=== PATIENT | female | born 1935 | race Caucasian/White ===

== ENCOUNTER 2022-10-27 05:01 | Emergency (ER) | payer MEDICARE, OTHER ==
[2022-10-27 05:14] VITALS: BP 134/73; PULSE 70
[2022-10-27] MEDS ORDERED: Ondansetron 4 MG/2 ML SDV IVPUSH ONE ×2 (05:29→09:26)
[2022-10-27] MEDS ORDERED: Sodium Chloride 0.9% 10 ML Syringe FLUSH PRN ×2 (05:29→07:51)
[2022-10-27] MEDS ORDERED: Sodium Chloride 0.9% 1,000 ML IV STA (05:29)
[2022-10-27 07:00] LABS: ESTIMATED GFR 55 mL/min (>60)
[2022-10-27] MEDS ORDERED: Iopamidol 612 MG/ML 100 ML Bottle IVPUSH ONE (07:51)
== END 2022-10-27 09:42 | disposition home or self-care (01) ==
LOC: JD.ED 05:01
DX: K52.9 Noninfective gastroenteritis and colitis, unspecified (principal); Z91.048 Other nonmedicinal substance allergy status; Z88.5 Allergy status to narcotic agent; Z88.8 Allergy status to other drugs, medicaments and biological substances; Z79.82 Long term (current) use of aspirin; Z79.899 Other long term (current) drug therapy
CPT/HCPCS: 36415; 74177; 74177-26; 80053; 83690; 85025; 96361; 96374; 96376; 99284-25; J2405; J3490; J7030; Q9967

== ENCOUNTER 2024-06-30 13:19 | Emergency (ER) | payer MEDICARE, OTHER ==
[2024-06-30 14:33] LABS: BASOPHILS PERCENT AUTO 0.2 % (0.0-1.0); EOSINOPHILS ABSOLUTE AUTO 0.1 K/mm3 (0.0-0.4); EOSINOPHILS PERCENT AUTO 0.6 % (0.0-6.0); HEMATOCRIT 33.9 % (37.0-47.0); IMMATURE GRAN ABSOLUTE AUTO 0.06 K/mm3 (0.00-0.05); IMMATURE GRAN PERCENT AUTO 0.6 % (0.0-0.4); LYMPHOCYTES ABSOLUTE AUTO 1.1 K/mm3 (1.0-4.8); LYMPHOCYTES PERCENT AUTO 11.4 % (24.0-44.0); MEAN CORPUSCULAR HGB CONC 35.4 g/dl (32.0-36.0); MEAN PLATELET VOLUME 8.9 fl (9.4-12.3); MONOCYTES PERCENT AUTO 9.8 % (0.0-8.0); NEUTROPHILS ABSOLUTE AUTO 7.5 K/mm3 (1.8-7.7); NEUTROPHILS PERCENT AUTO 77.4 % (41.0-71.0); PLATELET COUNT,PLT 188 K/mm3 (150-400); RED BLOOD CELL COUNT 3.53 M/mm3 (4.10-5.30); WHITE BLOOD CELL COUNT,WBC 9.75 K/mm3 (3.9-11.3)
[2024-06-30 14:56] LABS: A/G RATIO 0.8 (1-2); ALBUMIN 2.6 g/dl (3.4-5.0); CALCIUM 8.3 mg/dL (8.5-10.1); CREATININE 0.8 mg/dL (0.55-1.02); EST CRCL DRUG DOSING (CG) 35.97 mL/min; MAGNESIUM 1.9 mg/dL (1.8-2.4); PROTEIN TOTAL,TP 5.9 g/dl (6.4-8.2)
[2024-06-30 15:50] LABS: APPEARANCE,URINE CLOUDY (Clear); BILIRUBIN,URINE 2+ (Negative); COLOR,URINE DARK YELLOW (Yellow); GLUCOSE,URINE TRACE (Negative); KETONES,URINE 2+ (Negative); LEUKOCYTE ESTERASE,URINE 1+ (Negative); NITRITE,URINE NEGATIVE (Negative); OCCULT BLOOD,URINE NEGATIVE (Negative); PROTEIN,URINE 2+ (Negative)
[2024-06-30 16:26] LABS: RBC,URINE 0-5 /hpf (0-5)
[2024-06-30 16:27] LABS: AMORPHOUS SEDIMENT,URINE MODERATE /hpf (NOT SEEN); BACTERIA,URINE MODERATE /hpf (FEW); CALCIUM OXALATE CRYSTALS,URINE FEW; MUCUS,URINE FEW /hpf (FEW)
[2024-06-30] MEDS: Potassium Chloride 20 MEQ Tab.ER PO ONE (17:33)
[2024-06-30 17:47] VITALS: BP 134/85; PULSE 72
== END 2024-06-30 17:40 | disposition home or self-care (01) ==
LOC: JD.ED 13:19
DX: R53.1 Weakness (principal); Z79.899 Other long term (current) drug therapy; Z91.048 Other nonmedicinal substance allergy status; Z88.8 Allergy status to other drugs, medicaments and biological substances; Z88.5 Allergy status to narcotic agent; Z88.9 Allergy status to unspecified drugs, medicaments and biological substances; Z79.82 Long term (current) use of aspirin
CPT/HCPCS: 36415; 80053; 81001; 83735; 83880; 84484; 85025; 87086; 93005; 99285; A9270-GY

== ENCOUNTER 2024-07-13 09:32 | Inpatient (IN) | payer MEDICARE, OTHER ==
[2024-07-13] MEDS: Sodium Chloride 0.9% 500 ML IV ONE ×2 (10:30→12:27)
[2024-07-13] MEDS: Sodium Chloride 0.9% 10 ML Syringe FLUSH PRN (10:30)
[2024-07-13 10:45] LABS: BASOPHILS PERCENT AUTO 0.3 % (0.0-1.0); EOSINOPHILS PERCENT AUTO 0.1 % (0.0-6.0); HEMATOCRIT 40.4 % (37.0-47.0); HEMOGLOBIN 14.4 gm/dl (12.0-16.0); IMMATURE GRAN ABSOLUTE AUTO 0.23 K/mm3 (0.00-0.05); IMMATURE GRAN PERCENT AUTO 2.1 % (0.0-0.4); LYMPHOCYTES ABSOLUTE AUTO 1.7 K/mm3 (1.0-4.8); LYMPHOCYTES PERCENT AUTO 15.1 % (24.0-44.0); MEAN CORPUSCULAR HEMOGLOBIN 33.6 pg (28.0-32.0); MEAN CORPUSCULAR HGB CONC 35.6 g/dl (32.0-36.0); MEAN CORPUSCULAR VOLUME 94.4 fl (83.0-99.0); MEAN PLATELET VOLUME 9.3 fl (9.4-12.3); MONOCYTES ABSOLUTE AUTO 0.6 K/mm3 (0.0-0.8); MONOCYTES PERCENT AUTO 5.3 % (0.0-8.0); NEUTROPHILS ABSOLUTE AUTO 8.7 K/mm3 (1.8-7.7); NEUTROPHILS PERCENT AUTO 77.1 % (41.0-71.0); NRBC ABSOLUTE 0.02 (0.00-0.02); NRBC PERCENT 0.2 % (0.0-0.2); PLATELET COUNT,PLT 124 K/mm3 (150-400); RED BLOOD CELL COUNT 4.28 M/mm3 (4.10-5.30)
[2024-07-13 10:54] LABS: CORONAVIRUS COVID-19 NAA POSITIVE (NEGATIVE); INFLUENZA A NAA NEGATIVE (NEGATIVE); RESPIRATORY SYNCYTIAL VIR NAA NEGATIVE (NEGATIVE)
[2024-07-13 10:54] LABS: APPEARANCE,URINE SLT CLOUDY (Clear); BILIRUBIN,URINE 3+ (Negative); COLOR,URINE AMBER (Yellow); GLUCOSE,URINE NEGATIVE (Negative); KETONES,URINE 3+ (Negative); LEUKOCYTE ESTERASE,URINE NEGATIVE (Negative); NITRITE,URINE NEGATIVE (Negative); OCCULT BLOOD,URINE NEGATIVE (Negative); PROTEIN,URINE 3+ (Negative)
[2024-07-13 11:05] LABS: A/G RATIO 0.7 (1-2); ALBUMIN 2.7 g/dl (3.4-5.0); ANION GAP 20.7 (5-15); BILIRUBIN TOTAL 3.6 mg/dL (0.2-1.0); BUN/CREATININE RATIO 16.4 (14-18); CALCIUM 7.9 mg/dL (8.5-10.1); CREATININE 1.1 mg/dL (0.55-1.02); EST CRCL DRUG DOSING (CG) 26.16 mL/min; MAGNESIUM 2.1 mg/dL (1.8-2.4); POTASSIUM,K 2.7 mEq/L (3.5-5.1); PROTEIN TOTAL,TP 6.6 g/dl (6.4-8.2)
[2024-07-13 11:06] LABS: LACTIC ACID 2.9 mmol/L (0.4-2.0)
[2024-07-13 11:40] LABS: AMORPHOUS SEDIMENT,URINE MODERATE /hpf (NOT SEEN); BACTERIA,URINE MANY /hpf (FEW); MUCUS,URINE FEW /hpf (FEW); RBC,URINE 0-5 /hpf (0-5); WBC,URINE 0-5 /hpf (0-5)
[2024-07-13 11:41] LABS: YEAST,URINE FEW (NOT SEEN)
[2024-07-13 11:45] LABS: INR 1.17; PROTHROMBIN TIME 12.3 SECONDS (9.7-12.0)
[2024-07-13 11:46] LABS: PTT,PARTIAL THROMBOPLSTIN TIME 29.5 SECONDS (21.7-31.4)
[2024-07-13] MEDS: Potassium Chloride 10 MEQ in Premix Bag 1 BAG IV SCH (12:27)
[2024-07-13] MEDS: Potassium Chloride 20 MEQ Tab.ER PO ONE (12:28)
[2024-07-13] MEDS: Fluconazole 150 MG Tab PO ONE (12:28)
[2024-07-13] MEDS ORDERED: Polyethylene Glycol 3350 Powder 17 GM Packet PO PRN (12:57)
[2024-07-13] MEDS ORDERED: Acetaminophen 325 MG Tab PO PRN (12:57)
[2024-07-13] MEDS ORDERED: Ondansetron 4 MG Tab.DIS PO PRN (12:57)
[2024-07-13] MEDS ORDERED: Diltiazem 125 MG in Sodium Chloride 0.9% 100 ML IV SCH (13:15)
[2024-07-13] MEDS: Diltiazem 25 MG/5 ML SDV IVPUSH ONE (13:35)
[2024-07-13] MEDS: REMDESIVIR 200 MG in Sodium Chloride 0.9% 250 ML IV ONE (14:14)
[2024-07-13] MEDS: Sodium Chloride 0.9% 1,000 ML IV SCH (14:24)
[2024-07-13 16:03] LABS: TSH 0.598 uIU/mL (0.358-3.74)
[2024-07-13] MEDS: Diltiazem 120 MG Cap.CD PO SCH (16:32)
[2024-07-13 17:04] LABS: POTASSIUM,K 2.8 mEq/L (3.5-5.1)
[2024-07-13 19:29] LABS: LACTIC ACID 1.6 mmol/L (0.4-2.0)
[2024-07-14] MEDS: guaiFENesin 600 MG Tab.ER PO SCH (02:57)
[2024-07-14 05:31] LABS: BASOPHILS PERCENT AUTO 0.2 % (0.0-1.0); IMMATURE GRAN ABSOLUTE AUTO 0.33 K/mm3 (0.00-0.05); IMMATURE GRAN PERCENT AUTO 3.5 % (0.0-0.4); LYMPHOCYTES ABSOLUTE AUTO 1.7 K/mm3 (1.0-4.8); MEAN CORPUSCULAR HEMOGLOBIN 33.8 pg (28.0-32.0); MEAN CORPUSCULAR HGB CONC 35.9 g/dl (32.0-36.0); MEAN CORPUSCULAR VOLUME 94.1 fl (83.0-99.0); MEAN PLATELET VOLUME 9.4 fl (9.4-12.3); MONOCYTES ABSOLUTE AUTO 0.4 K/mm3 (0.0-0.8); MONOCYTES PERCENT AUTO 4.2 % (0.0-8.0); NEUTROPHILS PERCENT AUTO 74.1 % (41.0-71.0); NRBC ABSOLUTE 0.03 (0.00-0.02); NRBC PERCENT 0.3 % (0.0-0.2); PLATELET COUNT,PLT 109 K/mm3 (150-400); WHITE BLOOD CELL COUNT,WBC 9.43 K/mm3 (3.9-11.3)
[2024-07-14 05:36] LABS: HEMOGLOBIN 11.5 gm/dl (12.0-16.0)
[2024-07-14 05:57] LABS: A/G RATIO 0.6 (1-2); ALBUMIN 2.1 g/dl (3.4-5.0); ANION GAP 18.8 (5-15); BILIRUBIN TOTAL 2.8 mg/dL (0.2-1.0); BUN/CREATININE RATIO 26.3 (14-18); CALCIUM 7.4 mg/dL (8.5-10.1); CREATININE 0.8 mg/dL (0.55-1.02); EST CRCL DRUG DOSING (CG) 35.97 mL/min; POTASSIUM,K 2.8 mEq/L (3.5-5.1); PROTEIN TOTAL,TP 5.4 g/dl (6.4-8.2)
[2024-07-14] MEDS: Benzonatate 100 MG Cap PO SCH (08:45)
[2024-07-14] MEDS: Potassium Bicarbonate/Cit Ac 20 MEQ Effervescent Tab PO ONE (08:46)
[2024-07-14] MEDS ORDERED: Loperamide 2 MG Cap PO PRN (11:46)
[2024-07-14] MEDS: REMDESIVIR 100 MG in Sodium Chloride 0.9% 250 ML IV SCH (13:13)
[2024-07-14] MEDS: Dextrose 5%-0.9% NaCl 1,000 ML IV SCH (20:15)
[2024-07-15] MEDS: Dextrose 5%-0.45% NaCl 1,000 ML IV SCH (02:48)
[2024-07-15 05:37] LABS: BASOPHILS PERCENT AUTO 0.3 % (0.0-1.0); EOSINOPHILS ABSOLUTE AUTO 0.3 K/mm3 (0.0-0.4); EOSINOPHILS PERCENT AUTO 2.9 % (0.0-6.0); HEMATOCRIT 33.9 % (37.0-47.0); HEMOGLOBIN 12.2 gm/dl (12.0-16.0); IMMATURE GRAN ABSOLUTE AUTO 0.32 K/mm3 (0.00-0.05); IMMATURE GRAN PERCENT AUTO 3.6 % (0.0-0.4); LYMPHOCYTES ABSOLUTE AUTO 1.7 K/mm3 (1.0-4.8); LYMPHOCYTES PERCENT AUTO 19.4 % (24.0-44.0); MEAN CORPUSCULAR HEMOGLOBIN 33.8 pg (28.0-32.0); MEAN CORPUSCULAR VOLUME 93.9 fl (83.0-99.0); MEAN PLATELET VOLUME 9.7 fl (9.4-12.3); MONOCYTES ABSOLUTE AUTO 0.6 K/mm3 (0.0-0.8); MONOCYTES PERCENT AUTO 6.3 % (0.0-8.0); NEUTROPHILS PERCENT AUTO 67.5 % (41.0-71.0); NRBC ABSOLUTE 0.02 (0.00-0.02); NRBC PERCENT 0.2 % (0.0-0.2); PLATELET COUNT,PLT 105 K/mm3 (150-400); RED BLOOD CELL COUNT 3.61 M/mm3 (4.10-5.30); WHITE BLOOD CELL COUNT,WBC 8.85 K/mm3 (3.9-11.3)
[2024-07-15 06:07] LABS: A/G RATIO 0.6 (1-2); ALBUMIN 2.1 g/dl (3.4-5.0); ANION GAP 14.8 (5-15); BILIRUBIN TOTAL 2.8 mg/dL (0.2-1.0); BUN/CREATININE RATIO 27.5 (14-18); CALCIUM 7.5 mg/dL (8.5-10.1); CREATININE 0.8 mg/dL (0.55-1.02); EST CRCL DRUG DOSING (CG) 35.97 mL/min; POTASSIUM,K 2.8 mEq/L (3.5-5.1); PROTEIN TOTAL,TP 5.4 g/dl (6.4-8.2)
[2024-07-15] MEDS ORDERED: Dextrose 5%-0.9% NaCl 1,000 ML IV SCH (06:15)
[2024-07-15] MEDS ORDERED: Potassium Chloride 40 MEQ in Dextrose 5% in Water 1,000 ML IV SCH (06:15)
[2024-07-15] MEDS: Potassium Chloride 40 MEQ in Dextrose 5% in Water 1,000 ML IV SCH (07:49)
[2024-07-15] MEDS: Enoxaparin 40 MG/0.4 ML Syringe SUBCUT SCH (09:50)
[2024-07-16 07:09] LABS: BASOPHILS PERCENT AUTO 0.5 % (0.0-1.0); EOSINOPHILS PERCENT AUTO 0.3 % (0.0-6.0); HEMATOCRIT 32.3 % (37.0-47.0); HEMOGLOBIN 11.6 gm/dl (12.0-16.0); IMMATURE GRAN ABSOLUTE AUTO 0.29 K/mm3 (0.00-0.05); IMMATURE GRAN PERCENT AUTO 3.8 % (0.0-0.4); LYMPHOCYTES PERCENT AUTO 26.4 % (24.0-44.0); MEAN CORPUSCULAR HEMOGLOBIN 33.5 pg (28.0-32.0); MEAN CORPUSCULAR HGB CONC 35.9 g/dl (32.0-36.0); MEAN CORPUSCULAR VOLUME 93.4 fl (83.0-99.0); MEAN PLATELET VOLUME 9.8 fl (9.4-12.3); MONOCYTES ABSOLUTE AUTO 0.6 K/mm3 (0.0-0.8); MONOCYTES PERCENT AUTO 7.6 % (0.0-8.0); NEUTROPHILS ABSOLUTE AUTO 4.7 K/mm3 (1.8-7.7); NEUTROPHILS PERCENT AUTO 61.4 % (41.0-71.0); NRBC ABSOLUTE 0.05 (0.00-0.02); NRBC PERCENT 0.7 % (0.0-0.2); PLATELET COUNT,PLT 100 K/mm3 (150-400); RED BLOOD CELL COUNT 3.46 M/mm3 (4.10-5.30); WHITE BLOOD CELL COUNT,WBC 7.62 K/mm3 (3.9-11.3)
[2024-07-16 07:29] LABS: A/G RATIO 0.6 (1-2); ALBUMIN 1.9 g/dl (3.4-5.0); ANION GAP 10.1 (5-15); BILIRUBIN TOTAL 2.9 mg/dL (0.2-1.0); BUN/CREATININE RATIO 24.3 (14-18); CREATININE 0.7 mg/dL (0.55-1.02); EST CRCL DRUG DOSING (CG) 41.11 mL/min; POTASSIUM,K 3.1 mEq/L (3.5-5.1)
[2024-07-16] MEDS: Potassium Chloride 20 MEQ Tab.ER PO ONE (09:09)
[2024-07-16] MEDS: Potassium Chloride 10 MEQ in Premix Bag 1 BAG IV SCH (09:21)
[2024-07-16] MEDS: Hyaluronidase, Human Recomb. 150 Unit/ML Vial SUBCUT ONE (09:26)
[2024-07-16] MEDS: Sodium Chloride 0.9% 250 ML IV ONE (14:17)
[2024-07-17 05:26] LABS: BUN/CREATININE RATIO 23.3 (14-18); CALCIUM 7.3 mg/dL (8.5-10.1); CREATININE 0.9 mg/dL (0.55-1.02); EST CRCL DRUG DOSING (CG) 31.98 mL/min
[2024-07-17 05:42] LABS: ANION GAP 13.2 (5-15)
[2024-07-17 05:59] LABS: POTASSIUM,K 4.2 mEq/L (3.5-5.1)
[2024-07-17 13:19] VITALS: BP 99/64; PULSE 88
== END 2024-07-17 15:30 | disposition home or self-care (01) | DRG 280 ==
LOC: JD.ED 09:32 → JD.ICU 12:58 → JD.MS 07-14 13:05
PROVIDERS: ADMIT Family Medicine; ATTEND Internal Medicine
PROC: XW033E5 Introduction of Remdesivir Anti-infective into Peripheral Vein, Percutaneous Approach, New Technology Group 5 (ICD-10-PCS; principal; 2024-07-13)
DX: I48.91 Unspecified atrial fibrillation (principal); G92.8 Other toxic encephalopathy; I21.A1 Myocardial infarction type 2; U07.1 COVID-19; R79.89 Other specified abnormal findings of blood chemistry; C18.9 Malignant neoplasm of colon, unspecified; E87.29 Other acidosis; E87.1 Hypo-osmolality and hyponatremia; Z66 Do not resuscitate; E86.0 Dehydration; K52.9 Noninfective gastroenteritis and colitis, unspecified; E87.6 Hypokalemia; Z51.5 Encounter for palliative care; Z88.8 Allergy status to other drugs, medicaments and biological substances; Z91.048 Other nonmedicinal substance allergy status; Z79.82 Long term (current) use of aspirin; Z79.899 Other long term (current) drug therapy
CPT/HCPCS: 0241U; 36415; 51798; 70450; 70450-26; 71045; 71045-26; 80048; 80053; 81001; 82947; 83605; 83735; 84132; 84443; 84484; 85025; 85610; 85730; 86140; 87040; 93005; 93010; 94760; 94761; 96361; 96365; 97110-GP; 97112-GP; 97162-GP; 97530-GP; 99285; 99285-25; A9270-GY; C1758; J0248; J1650; J3480; J3490; J7030; J7042; J7050; J7060; J7799